=== PATIENT | male | born 1965 | race Caucasian/White ===

== ENCOUNTER 2016-11-14 20:38 | Emergency (ER) | payer OTHER ==
[~2016-11-14] VITALS: Ht 177.8 cm; Wt 103.0 kg
[2016-11-14 20:51] VITALS: BP 185/106; PULSE 75; RESP 20; TEMP 97.7; O2SAT 97
[2016-11-14] MEDS ORDERED: PANTOPRAZOLE SODIUM 40 MG VIAL IV PUSH ONE (21:00)
[2016-11-14] MEDS ORDERED: ONDANSETRON HCL 4 MG/2 ML VIAL IV PUSH ONE (21:00)
[2016-11-14] MEDS ORDERED: SODIUM CHLOR 0.9% 1000 ML INJ 1,000 ML IV SCH (21:00)
[2016-11-14] MEDS ORDERED: HYDROmorphone HCL PF 1 MG/ML VIAL IV PUSH ONE (21:00)
--- NOTE | 2016-11-14 21:06 | PD ---
HPI Chief Complaint: Abdominal Pain Time Seen by Provider: 20:55 Travel History International Travel<30 days: No Contact w/Intl Traveler<30days: No Traveled to known affect area: No History of Present Illness HPI This 51-year-old male is complaining of left upper quadrant pain. Since she had some mild pain throughout the day but became quite severe couple hours ago. His been no nausea or vomiting. He does not recall having pain like this before. He had taken some Motrin a couple of days ago because of headache. The pain is not pleuritic area and he is not short of breath and is not aggravated by breathing. The pain is quite severe. He is not aware of any fever or chills. There is no history of trauma PFSH Past Medical History Medical History: Denies Significant Hx Diminished Hearing: Yes (BILATERAL) Tetanus Vaccination: Unknown Influenza Vaccination: No Past Surgical History Surgical History: No Previous Surgery Social History Alcohol Use: No Tobacco Use: No Substance Use: No Allergies-Medications (Allergen,Severity, Reaction): Coded Allergies: No Known Allergies (Unverified , 11/14/16) Reported Meds & Prescriptions Reported Meds & Active Scripts Active No Active Prescriptions or Reported Medications Review of Systems General / Constitutional: No: Fever, Chills Eyes: No: Diploplia HENT: No: Headaches, Vertigo Cardiovascular: No: Chest Pain or Discomfort, Palpitations Respiratory: No: Cough, Shortness of Breath Gastrointestinal: Positive: Abdominal Pain, No: Vomiting, Diarrhea Genitourinary: No: Urgency, Dysuria Musculoskeletal: No: Myalgias Physical Exam Narrative GENERAL: Well-developed male SKIN: Warm and dry. HEAD: Atraumatic. Normocephalic. EYES: Pupils equal and round. No scleral icterus. No injection or drainage. ENT: No nasal bleeding or discharge. Mucous membranes pink and moist. NECK: Trachea midline. No JVD. CARDIOVASCULAR: Regular rate and rhythm. No murmur appreciated. RESPIRATORY: No accessory muscle use. Clear to auscultation. Breath sounds equal bilaterally. GASTROINTESTINAL: Abdomen soft, non-tender, nondistended. Hepatic and splenic margins not palpable. Site of pain is the lateral aspect of the left upper quadrant. I do not feel any abnormality at the site though he does appear uncomfortable with pain MUSCULOSKELETAL: No obvious deformities. No clubbing. No cyanosis. No edema. NEUROLOGICAL: Awake and alert. No obvious cranial nerve deficits. Motor grossly within normal limits. Normal speech. PSYCHIATRIC: Appropriate mood and affect; insight and judgment normal. Data Data Last Documented VS Vital Signs Date Time Temp Pulse Resp B/P Pulse Ox O2 Delivery O2 Flow Rate FiO2 11/14/16 23:00 69 16 153/97 97 Room Air 11/14/16 20:51 97.7 Orders Complete Blood Count With Diff (11/14/16 21:00) Comprehensive Metabolic Panel (11/14/16 21:00) Lipase (11/14/16 21:00) Urinalysis - C+S If Indicated (11/14/16 21:00) Ct Abd/Pel W Iv Contrast(Rout) (11/14/16 21:00) Sodium Chlor 0.9% 1000 Ml Inj (Ns 1000 M (11/14/16 21:00) Ondansetron Inj (Zofran Inj) (11/14/16 21:00) Hydromorphone Pf Inj (Dilaudid Pf Inj) (11/14/16 21:00) Pantoprazole Inj (Protonix Inj) (11/14/16 21:00) Oral Contrast - Adult (11/14/16 21:06) Electrocardiogram (11/14/16 20:41) Diatrizoate Liq ( Gastrocharlene Liq) (11/14/16 22:01) Diatrizoate Liq ( Gastrocharlene Liq) (11/14/16 22:06) Iohexol 350 Inj (Omnipaque 350 Inj) (11/14/16 23:45) Labs Laboratory Tests Test 11/14/16 11/14/16 21:00 22:50 White Blood Count 9.6 TH/MM3 Red Blood Count 5.29 MIL/MM3 Hemoglobin 15.8 GM/DL Hematocrit 47.0 % Mean Corpuscular Volume 89.0 FL Mean Corpuscular Hemoglobin 29.9 PG Mean Corpuscular Hemoglobin 33.7 % Concent Red Cell Distribution Width 12.9 % Platelet Count 231 TH/MM3 Mean Platelet Volume 8.3 FL Neutrophils (%) (Auto) 57.3 % Lymphocytes (%) (Auto) 33.7 % Monocytes (%) (Auto) 7.7 % Eosinophils (%) (Auto) 1.0 % Basophils (%) (Auto) 0.3 % Neutrophils # (Auto) 5.6 TH/MM3 Lymphocytes # (Auto) 3.2 TH/MM3 Monocytes # (Auto) 0.7 TH/MM3 Eosinophils # (Auto) 0.1 TH/MM3 Basophils # (Auto) 0.0 TH/MM3 CBC Comment DIFF FINAL Differential Comment Sodium Level 139 MEQ/L Potassium Level 3.8 MEQ/L Chloride Level 104 MEQ/L Carbon Dioxide Level 27.5 MEQ/L Anion Gap 8 MEQ/L Blood Urea Nitrogen 22 MG/DL Creatinine 1.20 MG/DL Estimat Glomerular Filtration 64 ML/MIN Rate Random Glucose 98 MG/DL Calcium Level 9.3 MG/DL Total Bilirubin 0.4 MG/DL Aspartate Amino Transf 15 U/L (AST/SGOT) Alanine Aminotransferase 31 U/L (ALT/SGPT) Alkaline Phosphatase 145 U/L Total Protein 8.1 GM/DL Albumin 3.6 GM/DL Lipase 197 U/L Urine Color YELLOW Urine Turbidity CLEAR Urine pH 5.5 Urine Specific [place] 1.020 Urine Protein NEG mg/dL Urine Glucose (UA) NEG mg/dL Urine Ketones NEG mg/dL Urine Occult Blood TRACE Urine Nitrite NEG Urine Bilirubin NEG Urine Leukocyte Esterase NEG Urine RBC 0-3 /hpf Urine WBC 0-2 /hpf Urine Squamous Epithelial 0-5 /hpf Cells Urine Bacteria NONE /hpf Microscopic Urinalysis Comment CULT NOT INDICATED MDM Medical Decision Making Medical Screen Exam Complete: Yes Emergency Medical Condition: Yes Medical Record Reviewed: Yes Differential Diagnosis Differential includes splenic abnormality, gastritis, bowel obstruction, renal colic Narrative Course He was quite uncomfortable on arrival and was given Zofran and Dilaudid which seemed to provide relief. His blood work is unremarkable. Urinalysis unremarkable because of the severity of the pain and did order a CT scan which has been read as negative. Etiology for the pain has not been determined. It was left upper quadrant pain. I will recommend daily Prilosec for 10 days and I will provide Lortab in case there is a recurrence of the pain. If the pain is severe she should return Diagnosis Primary Impression: Gastritis Qualified Code: K29.00 - Acute gastritis without hemorrhage, unspecified gastritis type Additional Impression: Abdominal pain Qualified Code: R10.12 - Left upper quadrant pain Scripts Hydrocodone-Acetaminophen (Lortab)5-325 Mg Tab1-2 Tab PO Q6H PRN (PAIN) #20 TAB Ref 0 Prov:Chris Ruggiero MD 11/15/16 Pantoprazole (Protonix)20 Mg Tab20 Mg PO DAILY #30 TAB Ref 0 Prov:Chris Ruggiero MD 11/15/16 Disposition: 01 DISCHARGE HOME Condition: Stable Chris Ruggiero MD Nov 14, 2016 21:06
[2016-11-14 21:25] LABS: AUTOMATED NEUTROPHIL # 5.6 TH/MM3 (1.8-7.7); BASOPHIL % 0.3 % (0.0-2.0); EOSINOPHIL # 0.1 TH/MM3 (0-0.4); HEMO FLAGS DIFF FINAL; LYMPH % 33.7 % (9.0-44.0); LYMPHOCYTE # 3.2 TH/MM3 (1.0-4.8); MEAN CORPUSCULAR HEMOGLOBIN 29.9 PG (27.0-34.0); MEAN CORPUSCULAR HGB CONC 33.7 % (32.0-36.0); MONO % 7.7 % (0.0-8.0); NEUT % 57.3 % (16.0-70.0); PLATELET COUNT 231 TH/MM3 (150-450); RED BLOOD COUNT 5.29 MIL/MM3 (4.50-5.90); RED CELL DISTRIBUTION WIDTH 12.9 % (11.6-17.2); WHITE BLOOD COUNT 9.6 TH/MM3 (4.0-11.0)
[2016-11-14 21:33] LABS: CHLORIDE 104 MEQ/L (98-107); POTASSIUM 3.8 MEQ/L (3.5-5.1); SODIUM (NA) 139 MEQ/L (136-145)
[2016-11-14 21:35] LABS: ANION GAP 8 MEQ/L (5-15); BICARBONATE 27.5 MEQ/L (21.0-32.0); BLOOD UREA NITROGEN 22 MG/DL (7-18)
[2016-11-14 21:38] LABS: ALT (GPT) 31 U/L (12-78); AST (GOT) 15 U/L (15-37); GLOMERULAR FILTRATION RATE 64 ML/MIN (>89)
[2016-11-14 21:40] LABS: TOTAL BILIRUBIN ADULT 0.4 MG/DL (0.2-1.0)
[2016-11-14 21:41] LABS: ALKALINE PHOSPHATASE 145 U/L (45-117)
[2016-11-14 21:50] VITALS: BP 145/97; PULSE 69; RESP 17; O2SAT 98
[2016-11-14] MEDS ORDERED: DIATRIZOATE MEGLUM/DIATRIZOATE SOD 9 ML CUP ONE ×2 (22:01→22:06)
[2016-11-14 22:59] LABS: BLOOD, URINE TRACE (NEG); GLUCOSE,URINE NEG (NEG); KETONE, URINE NEG (NEG); NITRITE,URINE NEG (NEG); PH, URINE 5.5 (5.0-8.5)
[2016-11-14 23:00] VITALS: BP 153/97; PULSE 69; RESP 16; O2SAT 97
[2016-11-14 23:00] LABS: URINE COLOR YELLOW (YELLW/STRAW)
[2016-11-14 23:03] LABS: COMMENT (UR) CULT NOT INDICATED; CULTURE IF INDICATED CULT NOT INDICATED; RBC, URINE 0-3 /hpf (0-3); SQUAMOUS EPITHELIAL CELL URINE 0-5 /hpf (0-5); WBC, URINE 0-2 /hpf (0-5)
[2016-11-14] MEDS ORDERED: IOHEXOL 350 MG/ML 10 ML VIAL (for RAD DIAG) IV ONE (23:45)
--- NOTE | 2016-11-14 23:57 | RADHPO ---
EXAM DATE/TIME: 11/14/2016 23:25 [facility] COMPARISON: No previous studies available for comparison. INDICATIONS : Left upper quadrant pain. IV CONTRAST: 97 cc Omnipaque 350 (iohexol) IV ORAL CONTRAST: Prescribed oral contrast ingested. RADIATION DOSE: 18.82 CTDIvol (mGy) MEDICAL HISTORY : None SURGICAL HISTORY : None. ENCOUNTER: Initial ACUITY: 1 day PAIN SCALE: 6/10 LOCATION: Left upper quadrant TECHNIQUE: Volumetric scanning of the abdomen and pelvis was performed. Using automated exposure control and ad justment of the mA and/or kV according to patient size, radiation dose was kept as low as reasonably achievable to obtain optimal diagnostic quality images. FINDINGS: Examination of the lung bases demonstrates no abnormality. No pleural fluid is identified. No pulmona ry nodules are present. The liver and spleen are free of focal defects. The gallbladder and pancreas demonstrate no abnormality. The adrenal glands are normal. The kidneys demonstrate no evidence of fara id renal mass or hydronephrosis. No free fluid or abdominal masses are identified. No para-aortic omid nopathy is seen. Examination of the pelvis demonstrates no evidence of free fluid or pelvic mass. No abnormally enlarged inguinal or retroperitoneal lymph nodes are present. The bladder is unremarkable. CONCLUSION: 1. No evidence of acute abdominal or pelvic process. No masses are identified. Steve Ramos MD on November 14, 2016 at 23:53 Board Certified Radiologist. This report was verified electronically.
[2016-11-15 00:06] VITALS: BP 140/87; PULSE 65; RESP 18; O2SAT 97
[2016-11-15] MEDS ORDERED: HYDR-3533 PO (00:07)
[2016-11-15] MEDS ORDERED: PANT20 PO (00:07)
--- NOTE | 2016-11-15 16:01 | EKG ---
Date Performed: 11/14/2016 Time Performed: 20:41:08 PTAGE: 51 years EKG: Sinus rhythm . Anterior T wave changes are nonspecific Abnormal ECG NO PREVIOUS TRACING DOCTOR: Dash Almanza Interpretating Date/Time 11/15/2016 15:59:51
[2016-11-16] MEDS ORDERED: ZOFR4TAB3 SL (08:12)
[2016-11-16] MEDS ORDERED: PERC5TAB12 PO (08:12)
== END 2016-11-15 01:07 | disposition home or self-care (01) ==
LOC: PHED 20:38
DX: K29.00 Acute gastritis without bleeding (principal); R10.12 Left upper quadrant pain
CPT/HCPCS: 74177; 80053; 81001; 83690; 85025; 93005; 96361; 96374; 96375; 99284; C9113; J1170; J2405; J7030; Q9963; Q9967

== ENCOUNTER 2016-11-16 05:27 | Emergency (ER) | payer OTHER ==
[~2016-11-16] VITALS: Ht 177.8 cm; Wt 105.3 kg
[~2016-11-16 05:27] MED LIST: HYDR-3533 PO; PANT20 PO
[2016-11-16 05:35] VITALS: BP 154/103; PULSE 62; RESP 20; TEMP 97.6; O2SAT 97
[2016-11-16] MEDS ORDERED: SODIUM CHLOR 0.9% 1000 ML INJ 1,000 ML IV SCH (05:50)
[2016-11-16] MEDS ORDERED: ONDANSETRON HCL 4 MG/2 ML VIAL IVP ONE (06:00)
[2016-11-16] MEDS ORDERED: HYDROmorphone HCL PF 2 MG/ML VIAL IVS ONE (06:00)
[2016-11-16] MEDS ORDERED: PANTOPRAZOLE SODIUM 40 MG VIAL IVP ONE (06:00)
[2016-11-16] MEDS ORDERED: SODIUM CHLORIDE 0.9% FLUSH 5 ML FLUSH IVF PRN (06:00)
[2016-11-16 06:01] LABS: AUTOMATED NEUTROPHIL # 3.1 TH/MM3 (1.8-7.7); BASOPHIL % 0.5 % (0.0-2.0); EOSINOPHIL # 0.1 TH/MM3 (0-0.4); EOSINOPHIL % 1.1 % (0.0-4.0); HEMATOCRIT 46.8 % (39.0-51.0); HEMO FLAGS DIFF FINAL; LYMPHOCYTE # 2.7 TH/MM3 (1.0-4.8); MEAN CELL VOLUME 90.8 FL (80.0-100.0); MEAN CORPUSCULAR HEMOGLOBIN 29.8 PG (27.0-34.0); MEAN CORPUSCULAR HGB CONC 32.8 % (32.0-36.0); MONO % 7.3 % (0.0-8.0); NEUT % 49.1 % (16.0-70.0); PLATELET COUNT 211 TH/MM3 (150-450); RED BLOOD COUNT 5.15 MIL/MM3 (4.50-5.90); RED CELL DISTRIBUTION WIDTH 13.1 % (11.6-17.2); WHITE BLOOD COUNT 6.4 TH/MM3 (4.0-11.0)
[2016-11-16 06:09] LABS: CHLORIDE 104 MEQ/L (98-107); SODIUM (NA) 141 MEQ/L (136-145)
[2016-11-16 06:13] LABS: ANION GAP 7 MEQ/L (5-15); BICARBONATE 30.4 MEQ/L (21.0-32.0); BLOOD UREA NITROGEN 17 MG/DL (7-18)
[2016-11-16 06:15] VITALS: BP 156/99; PULSE 63; RESP 20; O2SAT 94
[2016-11-16 06:15] LABS: ALT (GPT) 29 U/L (12-78)
[2016-11-16 06:16] LABS: AST (GOT) 15 U/L (15-37); GLOMERULAR FILTRATION RATE 58 ML/MIN (>89)
[2016-11-16 06:17] LABS: TOTAL BILIRUBIN ADULT 0.4 MG/DL (0.2-1.0)
[2016-11-16 06:18] VITALS: BP 159/100; PULSE 63; RESP 20; O2SAT 98
[2016-11-16 06:18] LABS: ALKALINE PHOSPHATASE 120 U/L (45-117)
[2016-11-16] MEDS ORDERED: IOHEXOL 350 MG/ML 10 ML VIAL (for RAD DIAG) IV ONE (06:37)
--- NOTE | 2016-11-16 06:50 | RADHPO ---
EXAM DATE/TIME: 11/16/2016 06:08 [facility] COMPARISON: No previous studies available for comparison. INDICATIONS : Left chest and flank pain. MEDICAL HISTORY : None. SURGICAL HISTORY : None. ENCOUNTER: Initial ACUITY: 3 days PAIN SCORE: 8/10 LOCATION: Bilateral chest FINDINGS: A single view of the chest demonstrates the lungs to be symmetrically aerated without evidence of mas s, infiltrate or effusion. The cardiomediastinal contours are unremarkable. Osseous structures are intact. CONCLUSION: 1. No acute cardiopulmonary disease. Steve Ramos MD on November 16, 2016 at 6:49 Board Certified Radiologist. This report was verified electronically.
--- NOTE | 2016-11-16 06:53 | RADHPO ---
EXAM DATE/TIME: 11/16/2016 06:32 [facility] COMPARISON: CT ABDOMEN & PELVIS W CONTRAST, November 14, 2016, 23:25. INDICATIONS : Left flank pain for 3 days. IV CONTRAST: 95 cc Omnipaque 350 (iohexol) IV ORAL CONTRAST: No oral contrast ingested. RADIATION DOSE: 17.30 CTDIvol (mGy) MEDICAL HISTORY : None SURGICAL HISTORY : None. ENCOUNTER: Initial ACUITY: 3 days PAIN SCALE: 6/10 LOCATION: Left flank TECHNIQUE: Volumetric scanning of the abdomen and pelvis was performed. Using automated exposure control and ad justment of the mA and/or kV according to patient size, radiation dose was kept as low as reasonably achievable to obtain optimal diagnostic quality images. FINDINGS: Examination of the lung bases demonstrates no abnormality. No pleural fluid is identified. No pulmona ry nodules are present. The liver and spleen are free of focal defects. The gallbladder and pancreas demonstrate no abnormality. The adrenal glands are normal. The kidneys demonstrate no evidence of fara id renal mass or hydronephrosis. No free fluid or abdominal masses are identified. No para-aortic omid nopathy is seen. Examination of the pelvis demonstrates no evidence of free fluid or pelvic mass. No abnormally enlarg ed inguinal or retroperitoneal lymph nodes are present. The bladder is unremarkable. There is diverti culosis without evidence of diverticulitis. CONCLUSION: 1. No evidence of acute abdominal or pelvic process. No masses are identified. 2. Diverticulosis without evidence of diverticulitis. Steve Ramos MD on November 16, 2016 at 6:49 Board Certified Radiologist. This report was verified electronically.
--- NOTE | 2016-11-16 07:06 | PD ---
HPI Chief Complaint: Flank/Kidney Pain Time Seen by Provider: 05:50 Travel History International Travel<30 days: No Contact w/Intl Traveler<30days: No Traveled to known affect area: No History of Present Illness HPI 51-year-old male presents to the emergency department by private transportation the care of his mother for evaluation of left-sided abdominal pain. According to the patient he's had no injury or fall. Patient was seen in the emergency department on Thursday for same complaint that began on evening early Thursday morning. Patient denies any dietary indiscretion. Patient denies any shortness of breath or chest pain. Patient's had no pleuritic pain. No hemoptysis. No recent febrile illness and no productive cough. Patient states pain is left-sided and radiates into the flank area. Patient had a normal CT of the abdomen and pelvis on Thursday. Patient was given prescription for pain medication states it is not providing him any relief. Patient's had no hematuria dysuria frequency or urgency. Patient denies history of diverticulitis diverticulosis colitis inflammatory bowel disease. Mother at bedside reports no significant family history and patient has no significant past medical history. Patient reports his pain as 8/10 in intensity. Patient is unable to identify exacerbating or alleviating factors. Patient is able to reportedly eat dinner but then pain was so severe could not wait until Thursday to follow-up with his primary care provider. Patient states he was diagnosed with gastritis denies any epigastric pain or generalized abdominal pain. Patient's had no diarrhea or constipation. No report of hematochezia or melena also no report of hematemesis or coffee-ground emesis. Patient is not reporting lower extremity numbness tingling or weakness or saddle anesthesia or bladder or bowel dysfunction. Patient reports pain has not relieved since leaving the hospital with his last visit. [facility] Past Medical History Narrative Medical Diminished hearing, vertigo, no surgery, no tobacco use, nursing notes reviewed Diminished Hearing: Yes (BILATERAL) Medical other: Yes (VERTIGO) Tetanus Vaccination: Unknown Influenza Vaccination: No Social History Alcohol Use: No Tobacco Use: No Substance Use: No Allergies-Medications (Allergen,Severity, Reaction): Coded Allergies: No Known Allergies (Unverified , 11/14/16) Reported Meds & Prescriptions Reported Meds & Active Scripts Active Zofran Odt (Ondansetron Odt) 4 Mg Tab 4 Mg SL Q6HR PRN Percocet (Oxycodone-Acetaminophen) 5-325 mg Tab 1-2 Tab PO Q6H PRN Lortab (Hydrocodone-Acetaminophen) 5-325 Mg Tab 1-2 Tab PO Q6H PRN Protonix (Pantoprazole Sodium) 20 Mg Tab 20 Mg PO DAILY Review of Systems Except as stated in HPI: all other systems reviewed are Neg General / Constitutional: No: Fever, Chills HENT: No: Congestion Cardiovascular: No: Chest Pain or Discomfort Respiratory: No: Shortness of Breath Gastrointestinal: Positive: Abdominal Pain, No: Nausea, Vomiting Genitourinary: Positive: Flank Pain, No: Urgency, Frequency, Dysuria, Hematuria Musculoskeletal: No: Myalgias, Arthralgias Skin: No Rash Neurologic: No: Weakness, Dizziness, Syncope Psychiatric: No: Anxiety Hematologic/Lymphatic: No: Lymph Node Enlargement Physical Exam Narrative GENERAL: Well-developed well-nourished anxious-appearing male in no respiratory distress. SKIN: Warm and dry. No skin rash no vesicles no pustules no petechia no purpura no increased skin sensitivity paresthesia HEAD: Normocephalic. EYES: No scleral icterus. No injection or drainage. NECK: Supple, trachea midline. No JVD or lymphadenopathy. CARDIOVASCULAR: Regular rate and rhythm without murmurs, gallops, or rubs. RESPIRATORY: Breath sounds equal bilaterally. No accessory muscle use. GASTROINTESTINAL: Abdomen soft, tender to palpation left upper quadrant left lower quadrant and left flank that reproduces pain of presentation with palpation no guarding or rebound, nondistended. MUSCULOSKELETAL: No cyanosis, or edema. BACK: Nontender without obvious deformity. Left CVA tenderness. Data Data Last Documented VS Vital Signs Date Time Temp Pulse Resp B/P Pulse Ox O2 Delivery O2 Flow Rate FiO2 11/16/16 07:37 54 18 140/86 94 Room Air 11/16/16 05:35 97.6 Orders Complete Blood Count With Diff (11/16/16 05:50) Comprehensive Metabolic Panel (11/16/16 05:50) Lipase (11/16/16 05:50) Urinalysis - C+S If Indicated (11/16/16 05:50) Ct Abd/Pel W Iv Contrast(Rout) (11/16/16 05:50) Iv Access Insert/Monitor (11/16/16 05:50) Ecg Monitoring (11/16/16 05:50) Oximetry (11/16/16 05:50) Hydromorphone Pf Inj (Dilaudid Pf Inj) (11/16/16 06:00) Ondansetron Inj (Zofran Inj) (11/16/16 06:00) Pantoprazole Inj (Protonix Inj) (11/16/16 06:00) Sodium Chlor 0.9% 1000 Ml Inj (Ns 1000 M (11/16/16 05:50) Sodium Chloride 0.9% Flush (Ns Flush) (11/16/16 06:00) Electrocardiogram (11/16/16 05:50) Chest, Single Ap (11/16/16 05:50) Troponin I (11/16/16 05:55) Iohexol 350 Inj (Omnipaque 350 Inj) (11/16/16 06:37) Ketorolac Inj (Toradol Inj) (11/16/16 07:15) Labs Laboratory Tests Test 11/16/16 11/16/16 05:55 07:20 White Blood Count 6.4 TH/MM3 Red Blood Count 5.15 MIL/MM3 Hemoglobin 15.4 GM/DL Hematocrit 46.8 % Mean Corpuscular Volume 90.8 FL Mean Corpuscular Hemoglobin 29.8 PG Mean Corpuscular Hemoglobin 32.8 % Concent Red Cell Distribution Width 13.1 % Platelet Count 211 TH/MM3 Mean Platelet Volume 7.8 FL Neutrophils (%) (Auto) 49.1 % Lymphocytes (%) (Auto) 42.0 % Monocytes (%) (Auto) 7.3 % Eosinophils (%) (Auto) 1.1 % Basophils (%) (Auto) 0.5 % Neutrophils # (Auto) 3.1 TH/MM3 Lymphocytes # (Auto) 2.7 TH/MM3 Monocytes # (Auto) 0.5 TH/MM3 Eosinophils # (Auto) 0.1 TH/MM3 Basophils # (Auto) 0.0 TH/MM3 CBC Comment DIFF FINAL Differential Comment Sodium Level 141 MEQ/L Potassium Level 4.0 MEQ/L Chloride Level 104 MEQ/L Carbon Dioxide Level 30.4 MEQ/L Anion Gap 7 MEQ/L Blood Urea Nitrogen 17 MG/DL Creatinine 1.30 MG/DL Estimat Glomerular Filtration 58 ML/MIN Rate Random Glucose 101 MG/DL Calcium Level 8.8 MG/DL Total Bilirubin 0.4 MG/DL Aspartate Amino Transf 15 U/L (AST/SGOT) Alanine Aminotransferase 29 U/L (ALT/SGPT) Alkaline Phosphatase 120 U/L Troponin I LESS THAN 0.02 NG/ML Total Protein 7.2 GM/DL Albumin 3.2 GM/DL Lipase 192 U/L Urine Collection Type CLEAN CATCH Urine Color YELLOW Urine Turbidity CLEAR Urine pH 5.5 Urine Specific [place] GREATER THAN 1.035 Urine Protein NEG mg/dL Urine Glucose (UA) NEG mg/dL Urine Ketones NEG mg/dL Urine Occult Blood TRACE Urine Nitrite NEG Urine Bilirubin NEG Urine Leukocyte Esterase NEG Urine RBC 0-3 /hpf Urine Squamous Epithelial 0-5 /hpf Cells Urine Amorphous Sediment FEW Microscopic Urinalysis Comment CULT NOT INDICATED Urine Collection Time 0720 MDM Medical Decision Making Medical Screen Exam Complete: Yes Emergency Medical Condition: Yes Medical Record Reviewed: Yes Interpretation(s) CT abd/pel FINDINGS: Examination of the lung bases demonstrates no abnormality. No pleural fluid is identified. No pulmonary nodules are present. The liver and spleen are free of focal defects. The gallbladder and pancreas demonstrate no abnormality. The adrenal glands are normal. The kidneys demonstrate no evidence of solid renal mass or hydronephrosis. No free fluid or abdominal masses are identified. No para-aortic adenopathy is seen. Examination of the pelvis demonstrates no evidence of free fluid or pelvic mass. No abnormally enlarged inguinal or retroperitoneal lymph nodes are present. The bladder is unremarkable. There is diverticulosis without evidence of diverticulitis. CONCLUSION: 1. No evidence of acute abdominal or pelvic process. No masses are identified. 2. Diverticulosis without evidence of diverticulitis. Steve Ramos MD on November 16, 2016 at 6:49 Board Certified Radiologist. This report was verified electronically. CXR: CONCLUSION: 1. No acute cardiopulmonary disease. Steve Ramos MD on November 16, 2016 at 6:49 Board Certified Radiologist. This report was verified electronically. CBC was automated differential: Values are all within normal range Complete metabolic panel: Values are all within normal range Lipase: 192, not elevated EKG normal sinus rhythm rate of [address] elevation or injury pattern change noted nonspecific inverted T waves inferiorly in lead 3 age- indeterminate Q-wave in lead 3 no ectopy Differential Diagnosis Flank pain, renal colic, pyelonephritis, musculoskeletal pain, shingles, colitis , diverticulitis, ischemic colitis, pancreatitis, atypical chest pain, ACS, myocardial infarction, aortic dissection, aortic aneurysm Narrative Course IV access obtained specimens collected and sent for resulting EKG performed shows sinus rhythm and no acute ST elevation or injury pattern change nonspecific T-wave changes noted; patient administered IV Dilaudid 1 mg and Zofran 4 mg IV patient markedly sensitive to IV access screen mean when nurse attempts to insert IV catheter which was performed without difficulty on first stick. CBC is automated differential values in normal range; metabolic panel within normal range. Review of medical records indicates patient had normal values with his last visit 11/14/[address] of the abdomen and pelvis with contrast revealed no acute intra-abdominal or pelvic abnormality. CT abdomen and pelvis reveals no acute abnormality; and 7:13 AM troponin I less than 0.02. Patient administered Toradol 30 mg IV for possible musculoskeletal/ inflammatory component of flank/abdominal wall pain. With the exception of elevated specific gravity all lab values and imaging studies EKG x-rays have fallen into normal range; patient does not have a skin rash although shingles is still a potential concern due to patient's complaint of persistent left-sided abdominal and flank pain. Patient is encouraged to return immediately for any type of rash development and discussion regarding varicella-zoster/shingles and that the patient at bedside in detail. Diagnosis Primary Impression: Flank pain Additional Impression: Dehydration Referrals: Primary Care Physician call for appointment Patient Instructions: General Instructions, Narcotic given in the ED Departure Forms: Tests/Procedures, Work Release Special Instructions: no work x 3 days Additional Instructions: Increase fluid hydration Take pain medication as prescribed Take medication as prescribed as needed for nausea and/or vomiting Monitor temperature every 4 hours with thermometer and take as needed acetaminophen/Tylenol every 4 hours for fever 100.4F or greater May use ibuprofen/Motrin/Advil as often as every 6 hours 600 mg for pain associated with inflammation or 800 mg as often as every 8 hours for pain associated with inflammation or for fever 100.4F or greater; avoid high-dose ibuprofen use for greater than 2-3 days Follow-up with your primary care physician call office in a.m. to schedule follow-up appointment Return to the emergency department for any concerns or change in condition No work times 3 days Med/Other Pt SpecificInfo: Prescription(s) given Scripts Ondansetron Odt (Zofran Odt)4 Mg Tab4 Mg SL Q6HR PRN (Nausea/Vomiting) #10 TAB Ref 0 Prov:Suzan Parker MD 11/16/16 Oxycodone-Acetaminophen (Percocet)5-325 mg Tab1-2 Tab PO Q6H PRN (PAIN) #12 TAB Ref 0 Prov:Suzan Parker MD 11/16/16 Disposition: 01 DISCHARGE HOME Suzan Parker MD Nov 16, 2016 07:06
[2016-11-16] MEDS ORDERED: KETOROLAC TROMETHAMINE 30 MG/ML (IVP) VIAL IV PUSH ONE (07:15)
[2016-11-16 07:34] LABS: BLOOD, URINE TRACE (NEG); GLUCOSE,URINE NEG (NEG); KETONE, URINE NEG (NEG); NITRITE,URINE NEG (NEG); PH, URINE 5.5 (5.0-8.5)
[2016-11-16 07:37] VITALS: BP 140/86; PULSE 54; RESP 18; O2SAT 94
[2016-11-16 07:46] LABS: METHOD OF COLLECTION CLEAN CATCH; URINE COLOR YELLOW (YELLW/STRAW)
[2016-11-16 07:47] LABS: COMMENT (UR) CULT NOT INDICATED; CULTURE IF INDICATED CULT NOT INDICATED; RBC, URINE 0-3 /hpf (0-3); SQUAMOUS EPITHELIAL CELL URINE 0-5 /hpf (0-5)
[2016-11-16] MEDS ORDERED: ZOFR4TAB3 SL (08:12)
[2016-11-16] MEDS ORDERED: PERC5TAB12 PO (08:12)
[2016-11-16 08:46] VITALS: BP 150/78
--- NOTE | 2016-11-17 19:48 | EKG ---
Date Performed: 11/16/2016 Time Performed: 05:54:12 PTAGE: 51 years EKG: Sinus bradycardia Inferior T wave changes are nonspecific Borderline ECG PREVIOUS TRACING : 11/14/2016 20.41 DOCTOR: Mike Welsh Interpretating Date/Time 11/17/2016 19:40:35
== END 2016-11-16 08:57 | disposition home or self-care (01) ==
LOC: PHED 05:27
DX: R10.9 Unspecified abdominal pain (principal); E86.0 Dehydration; R94.31 Abnormal electrocardiogram [ECG] [EKG]; H91.93 Unspecified hearing loss, bilateral; R42 Dizziness and giddiness
CPT/HCPCS: 71010; 74177; 80053; 81001; 83690; 84484; 85025; 93005; 96361; 96374; 96375; 99285; C9113; J1170; J1885; J2405; J7030; Q9967